=== PATIENT | female | born 1990 | race African-American/Black ===

== ENCOUNTER 2025-05-25 07:37 | Emergency (ER) | payer SELFPAY ==
[2025-05-25] MEDS ORDERED: Metoclopramide HCl 10 MG (2 mL) VIAL ONE (08:09)
[2025-05-25] MEDS ORDERED: diphenhydrAMINE 50 MG/ML VIAL ONE (08:09)
== END 2025-05-25 09:29 | disposition home or self-care (01) ==
LOC: CSHERS 07:37
DX: R51.9 Headache, unspecified (principal)
CPT/HCPCS: 70450; 96374; 96375; J1200; J2765